=== PATIENT | female | born 1940 | race Two or more races ===

== ENCOUNTER 2024-05-04 08:49 | Outpatient (AMB) | payer MEDICARE, SELFPAY ==
--- NOTE | 2024-05-04 08:51 | MHC.PC.OV ---
Vital Signs 05/04/24 09:25 Height 4 ft 8 in Weight 81 lb 4 oz BMI 18.2 BP 140/80 H Blood Pressure Location Lt brachial Position Sitting Pulse 108 H Pulse Source Pulse Oximeter Pulse Oximetry (%) 95 Oxygen Delivery Method Room Air Intake Visit Reasons: new patient, establish care. Intake Note: patient is here for new patient, establish care. Professional Poker Player Required: No Accompanied by: Son Allergies penicillin G Allergy (Mild, Verified 05/04/24 09:47) Unknown sulfamethoxazole [From Bactrim] Allergy (Mild, Verified 05/04/24 09:47) Unknown trimethoprim [From Bactrim] Allergy (Mild, Verified 05/04/24 09:47) Unknown Medication List - Last Reconciled 05/04/24 by Elli Dasilva MD calcium carbonate 200 mg PO TID multivitamin 1 tab PO DAILY Tobacco use date assessed: 05/04/24 Fall risk assessment: 2 + Falls in past year Last assessed Fall Risk: 05/04/24 Dental Screening Dental Screen Date: 05/04/24 Did you have a dental visit in the last 12 months?: No Did you have a dental problem in the last 6 months where you did not have access to dental care?: No Was dental information given to patient?: Patient declined HPI new patient, establish care. HPI Details 84-year-old lady here today to establish care with a new PCP, she is accompanied today by her son. She has history of cholelithiasis status post cholecystectomy in the past, and as per send had uterine fibroids status post partial hysterectomy. Reviewed some labs and ancillary procedures done at [facility] 11/2023. Patient apparently was seen there for some neuro deficit noted? Stroke. Her CBC, basic metabolic profile, C-reactive protein, thiamine be level vitamin B6, and CBC all came back within normal limits she had a lumbar tap done which came back with unremarkable findings x-ray of abdomen showed presence of cholecystectomy clips, nonspecific nonobstructive bowel gas pattern no pelvic or hip fracture, chest x-ray done showed no evidence of acute pulmonary disease, MRI brain with and without contrast did not show any acute pathology or abnormal enhancement in the brain parenchyma there is diffuse enhancement of the dura along the convexity so bilateral cerebral hemispheres and falx, which is a nonspecific finding. CT angiogram of head and neck did not show any proximal occlusion or high-grade stenosis in major arteries of the head and neck, no evidence of lymphadenopathy or mass, thyroid was unremarkable mild degenerative changes of the cervical spine noted without any acute osseous abnormality in also shows degenerative changes seen in the temporomandibular joints. CT of cervical spine without contrast and CT of head and brain without contrast showed no acute abnormality of the head or cervical5. She had an ultrasound Doppler both lower extremities which did not show any evidence of deep vein thrombosis. At present patient is here without any complaints other than being hard of hearing. FORMERLY [facility] Medical History (Updated 05/07/24 @ 16:24 by Elli Dasilva MD) Decreased hearing of both ears Underweight Gait instability Surgical History (Updated 05/07/24 @ 16:06 by Elli Dasilva MD) History of cholecystectomy History of partial hysterectomy Family History (Updated 05/04/24 @ 09:30 by Tramaine Torres CMA) Mother Depression Father Acute alcohol abuse Social History (Updated 05/04/24 @ 09:30 by Tramaine Torres CMA) Housing: House Alcohol intake: never Patient Tobacco Use Status: Never used Tobacco e-Cigarette/Vaping Use: Never Used service: No Current occupational status: retired Current occupational exposures/hazards: No Cognitive needs: No Hearing needs: No Vision needs: Yes Questionnaire PHQ-9 Over the last 2 weeks, how often have you been bothered by any of the following problems? 1. Little interest or pleasure in doing things: not at all 2. Feeling down, depressed, or hopeless: not at all 3. Trouble falling or staying asleep, or sleeping too much: not at all 4. Feeling tired or having little energy: not at all 5. Poor appetite or overeating: not at all 6. Feeling bad about yourself - or that you are a failure or have let yourself or your family down: not at all 7. Trouble concentrating on things, such as reading the newspaper or watching television: not at all 8. Moving or speaking so slowly that other people could have noticed. Or the opposite - being so fidgety or restless that you have been moving around a lot more than usual: not at all 9. Thoughts that you would be better off or of hurting yourself in some way: not at all Total score: 0 Depression Screening Interpretation: Negative Depression Screening Done: Yes 11580 - PHQ-9 Billing: Yes Source: Developed by Drs. Kenny Souza, Purvi Felton, Sincere Arreola and colleagues, with an educational halina from [employer]. Thrive Questionnaire Date Thrive assessed: 05/04/24 I am a: Parent/Caregiver What is your living situation today?: I have a steady place to live Within the past 12 months, did the food you bought not last and you didn't have the money to get more?: Never true Within the past 12 months, did you worry whether your food would run out before you got money to buy more?: Never true Do you have trouble paying for medicines?: No Do you have trouble getting transportation to medical appointments?: No Do you have trouble paying your heating and electricity bill?: No Do you have trouble taking care of your child, family member or friend?: No Do you have trouble with day-to-day activities such as bathing, preparing meals, shopping, managing finances, etc.?: Yes Are you currently unemployed and looking for a job?: No Are you interested in more education?: No Please select the resources that you would like help with: Care for elder or disabled Currently or been in a relationship where the following occur: No concerns reported THRIVE Score: 0 AUDIT C Alcohol Use Questionnaire (AUDIT-C) 1. How often do you have a drink containing alcohol?: Never 3. How often do you have six or more drinks on one occasion?: Never Total Score: 0 Score Reviewed/Action Taken: Yes NY-7 AMB Questionnaire NY-7 Date NY - 7 assessed: 05/04/24 Feeling nervous, anxious, or on edge: 0 = Not at all Not being able to stop or control worryin = Not at all Worrying too much about different things: 0 = Not at all Trouble relaxin = Not at all Being so restless that it is hard to sit still: 0 = Not at all Becoming easily annoyed or irritable: 0 = Not at all Feeling afraid as if something awful might happen: 0 = Not at all Total NY-7 score (0-4 normal; 5-9 mild; 10-14 moderate; 15-21 severe): 0 Source: Developed by Purvi Patiño, Sincere Arreola and colleagues, with an educational halina from [employer]. NY-7 Assessment Billing NY-7 Assessment Tool: [place]-7 Assessment 80002 Review of Systems Const Denies body aches, Denies fatigue, Denies fever(s), Denies headache(s) and Denies weakness Eyes Reports blurry vision ENT Denies dizziness, Denies headache(s), Denies nasal congestion, Denies nasal discharge and Denies sore throat Card Denies chest pain, Denies lightheadedness, Denies palpitations and Denies dyspnea Resp Denies cough, Denies dyspnea and Denies wheezing GI Denies abdominal pain, Denies change in bowel habits and Denies heartburn Denies urinary frequency and Denies dysuria Musc Reports arthralgias (Occasional), Denies joint swelling and Reports stiffness Skin/Breast Denies breast pain, Denies breast mass, Denies lesions and Denies rash Neuro Denies dizziness, Denies headache(s) and Denies weakness Psych Reports no additional complaints Endo Denies fatigue, Denies polydipsia, Denies polyuria and Denies palpitations Rafael/Lymph Denies easy bruising Aller/Immun Denies seasonal rhinorrhea and Denies wheezing Physical exam (Primary Care) Vital Signs: Last Vital Signs Pulse 108 H 05/04/24 09:25 BP 140/80 H 05/04/24 09:25 Pulse Ox 95 05/04/24 09:25 Oxygen Delivery Method Room Air 05/04/24 09:25 BMI result Body Mass Index 18.2 Tobacco/Smoking Status: Tobacco use Status Tobacco use date assessed 05/04/24 05/04/24 09:08 Patient Tobacco Use Status Never used Tobacco 05/04/24 09:30 e-Cigarette/Vaping Use Never Used 05/04/24 09:30 PHQ-9: PHQ-9 Score PHQ-9: Total score 0 05/07/24 16:07 Depression Screening Interpretation: Negative Thrive Assessment: Date of Thrive Assessment Date Thrive assessed 05/04/24 05/04/24 09:08 Currently or been in a relationship where the following occur: No concerns reported Advance Care Planning discussion: Completed/Scanned Date of discussion: 05/04/24 Who was present: Patient and son Forms completed: Health Care Proxy and MOLST Time spent: 16-45 minutes Actual minutes spent: 16 Const Other: Hard of hearing General: comfortable, no acute distress and alert Orientation/consciousness: patient oriented x3 HENMT Ears: external ears normal, TM's normal bilaterally, Abnormal EAC present excessive cerumen on the left and hearing grossly impaired General nose exam: Normal external nose present and No nasal discharge present Mouth: Normal oral and palatal mucosa present, oropharynx normal and moist mucous membranes Eyes General: appearance normal, both eyes and all related structures Conjunctivae: conjunctivae normal Sclerae: sclerae normal Pupils: Equal, round and reactive pupils present EOM: EOMs intact bilaterally Neck Neck: Yes full ROM, Yes no lymphadenopathy and Yes supple Resp Effort & Inspection: normal respiratory effort and able to speak in complete sentences Auscultation: clear to auscultation bilaterally Cardio Rate: regular rate Rhythm: regular rhythm Heart sounds: S1 normal heart sound present and S2 normal heart sound present GI Inspection: Yes scar (RUQ-cholecystectomy scar) Palpation (GI): Soft to palpation, nontender and no masses Auscultation: normal bowel sounds Back/Spine/Pelvis Other: kyphosis Back: No back tenderness Skin General skin exam: no rashes or lesions noted Neuro General: patient oriented x3, tone normal, moves all extremities and no focal motor deficits Cranial nerves: Yes CN's II-XII intact bilaterally and Yes Equal, round and reactive pupils present Cognition (Neuro): normal cognition Extrem General: Yes full ROM, Yes no joint enlargement, Yes no clubbing, cyanosis or edema and Yes no calf tenderness Psych Appearance: grossly normal and well kempt Mental Status: mental status grossly normal Speech and movement: Normal speech and movement present Affect: normal affect Attitude: cooperative Thought process: Normal thought process present Thought content: Normal thought content present Assessment and Plan Assessment & Plan (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 Encouraged to eat small frequent meals, declines to get hearing evaluation done, return to the clinic for removal of cerumen Orders: Orders Glucose Random 05/04/24 E8.40 - Asymptomatic postprocedural ovarian failure, R03.0 - Elevated blood-pressure reading, without diagnosis of hypertension, R26.81 - Unsteadiness on feet, R63.6 - Underweight, Z13.220 - Encounter for screening for lipoid disorders Comprehensive Met. Panel 05/04/24 E8.40 - Asymptomatic postprocedural ovarian failure, R03.0 - Elevated blood-pressure reading, without diagnosis of hypertension, R26.81 - Unsteadiness on feet, R63.6 - Underweight, Z13.220 - Encounter for screening for lipoid disorders Lipid Panel 05/04/24 E8.40 - Asymptomatic postprocedural ovarian failure, R03.0 - Elevated blood-pressure reading, without diagnosis of hypertension, R26.81 - Unsteadiness on feet, R63.6 - Underweight, Z13.220 - Encounter for screening for lipoid disorders Complete Blood Count Auto Diff 05/04/24 E8.40 - Asymptomatic postprocedural ovarian failure, R03.0 - Elevated blood-pressure reading, without diagnosis of hypertension, R26.81 - Unsteadiness on feet, R63.6 - Underweight, Z13.220 - Encounter for screening for lipoid disorders TSH reflex Free T4 05/04/24 E8.40 - Asymptomatic postprocedural ovarian failure, R03.0 - Elevated blood-pressure reading, without diagnosis of hypertension, R26.81 - Unsteadiness on feet, R63.6 - Underweight, Z13.220 - Encounter for screening for lipoid disorders Vitamin D 25-OH Total 05/04/24 E8.40 - Asymptomatic postprocedural ovarian failure, R03.0 - Elevated blood-pressure reading, without diagnosis of hypertension, R26.81 - Unsteadiness on feet, R63.6 - Underweight, Z13.220 - Encounter for screening for lipoid disorders Vitamin B12 and Folate 05/04/24 E8.40 - Asymptomatic postprocedural ovarian failure, R03.0 - Elevated blood-pressure reading, without diagnosis of hypertension, R26.81 - Unsteadiness on feet, R63.6 - Underweight, Z13.220 - Encounter for screening for lipoid disorders Coding Level of Care Code New Pt Level 4 (34708) Diagnoses Postsurgical menopause E89.40 Gait instability R26.81 Underweight R63.6 Decreased hearing of both ears H91.93 Excessive cerumen in left ear canal H61.22 Additional Codes [place]-7 Assessment Billing - [place]-7 Assessment Tool: [place]-7 Assessment 46698 ([id number]) Vital Signs *Quality* - Advance Care Planning discussion: Completed/Scanned ([id number]) Vital Signs *Quality* - Time spent: 16-45 minutes ([id number])
[2024-05-04 09:25] VITALS: BP 140/80; PULSE 108; O2SAT 95; BMI 18.2
== END 2024-05-04 10:55 | disposition home or self-care (01) ==
PROVIDERS: PCP Internal Medicine; Visit Provider Internal Medicine
DX: R26.81 Unsteadiness on feet (principal); E89.40 Asymptomatic postprocedural ovarian failure; R63.6 Underweight; H91.93 Unspecified hearing loss, bilateral; H61.22 Impacted cerumen, left ear; Z00.00 Encounter for general adult medical examination without abnormal findings
CPT/HCPCS: 1123F; 99204; 99497

== ENCOUNTER 2024-05-10 10:51 | Outpatient (AMB) | payer MEDICARE, SELFPAY ==
--- NOTE | 2024-05-10 10:53 | AM.OFFWIN_ITS ---
Intake Vital Signs 05/10/24 10:54 Height 4 ft 8 in Weight 81 lb BMI 18.2 BP 110/66 Blood Pressure Location Lt brachial Position Sitting Pulse 98 Pulse Source Pulse Oximeter Temp 97.9 F Temp Source Oral Pulse Oximetry (%) 98 Oxygen Delivery Method Room Air Intake Visit Reasons: Ear Lavage Intake Note: pt c/o ears blocked Patient Tobacco Use Status: Never used Tobacco Allergies penicillin G Allergy (Mild, Verified 05/10/24 10:54) Unknown sulfamethoxazole [From Bactrim] Allergy (Mild, Verified 05/10/24 10:54) Unknown trimethoprim [From Bactrim] Allergy (Mild, Verified 05/10/24 10:54) Unknown Do you need a note to return to daycare/school/sports/work: No HPI HPI Comments History of Present Illness Details This is an 84-year-old female presenting for removal of ear wax. Patient believes that she has more ear wax in her right ear than her left ear but denies having any otalgia, fevers, chills or sore throat. Patient has not used any avat-uyz-pvlqnsa products for ear wax removal prior to arrival in the urgent care. FOR[facility]LY [facility] Medical History Decreased hearing of both ears Underweight Gait instability Surgical History History of cholecystectomy History of partial hysterectomy Family History Mother Depression Father Acute alcohol abuse Social History Housing: House Alcohol intake: never Patient Tobacco Use Status: Never used Tobacco e-Cigarette/Vaping Use: Never Used service: No Current occupational status: retired Current occupational exposures/hazards: No Cognitive needs: No Hearing needs: No Vision needs: Yes Review of Systems Const Details: decreased hearing bilaterally, denies otalgia All systems reviewed & are unremarkable except as noted in HPI and below Denies chills and Denies fever(s) Eyes Reports no additional complaints ENT Reports no additional complaints Card Reports no additional complaints Resp Reports no additional complaints GI Reports no additional complaints Reports no additional complaints Skin/Breast Reports system reviewed and no additional complaints, except as documented Psych Reports no additional complaints Endo Reports no additional complaints Physical Exam Vital Signs: Last Vital Signs Temp 97.9 F 05/10/24 10:54 Pulse 98 05/10/24 10:54 BP 110/66 05/10/24 10:54 Pulse Ox 98 05/10/24 10:54 Oxygen Delivery Method Room Air 05/10/24 10:54 BMI result Body Mass Index 18.2 Const General: cooperative, healthy appearing, comfortable, no acute distress, well developed, alert and awake Nutritional Appearance: average body habitus Orientation/consciousness: patient oriented x3 Limitations: no limitations HEENT Head: Yes normal to inspection Ears: hearing grossly abnormal bilaterally (subjective decreased hearing), external ears normal, EAC's not normal (cerumen impaction R>L) and no periauricular adenopathy General nose exam: Normal external nose present Neuro General: patient oriented x3 Psych Appearance: grossly normal Mental Status: mental status grossly normal Insight: Good insight present (Psych) Judgement: Good judgement present (Psych) Office Procedures Cerumen Removal From which ear canal was the cerumen removed: bilateral Removal: irrigation Notes: patient tolerated procedure well and ear canal clear (bilaterally) [id number] Irrigation/Lavage Assessment & Plan Assessment & Plan (1) Cerumen impaction: Comment: Cerumen cleared bilaterally by irrigation Code(s): H61.20 - Impacted cerumen, unspecified ear Qualifiers: Laterality: bilateral Qualified Code(s): H61.23 - Impacted cerumen, bilateral Plan: Follow-up only as needed. Coding Level of Care Code Est Pt Level 3 (54211) Diagnoses Bilateral impacted cerumen H61.23 Laterality: bilateral CPT Codes Office Procedure - CPT: 79357-Usy Irrigation/Lavage ([id number]) Time Spent (min) 20
[2024-05-10 10:54] VITALS: BP 110/66; PULSE 98; TEMP 36.6; O2SAT 98; BMI 18.2
== END 2024-05-10 12:08 | disposition home or self-care (01) ==
PROVIDERS: PCP Internal Medicine; Visit Provider Physician Assistant
DX: H61.23 Impacted cerumen, bilateral (principal)
CPT/HCPCS: 69209; 99213

== ENCOUNTER → 2025-03-01 23:59 | Outpatient (BNV) | payer MEDICARE, SELFPAY | PROVIDERS: PCP Internal Medicine; Visit Provider Internal Medicine | DX: E43 Unspecified severe protein-calorie malnutrition (principal); G40.909 Epilepsy, unspecified, not intractable, without status epilepticus; F02.80 Dementia in other diseases classified elsewhere, unspecified severity, without behavioral disturbance, psychotic disturbance, mood disturbance, and anxiety | CPT/HCPCS: G0180 ==

== ENCOUNTER 2025-03-09 09:52 | Outpatient (AMB) | payer MEDICARE, SELFPAY ==
--- NOTE | 2025-03-09 09:56 | A.OFFPC_ITS ---
Vital Signs 03/09/25 10:07 Height 4 ft 11 in Weight 82 lb BMI 16.6 BP 118/64 Blood Pressure Location Lt brachial Position Sitting Respiration 18 Pulse 103 H Pulse Source Pulse Oximeter Temp 97.9 F Temp Source Oral Pulse Oximetry (%) 95 Intake Visit Reasons: d/c rehap from a fall Intake Note: Pt is here today, she had a fall 3 weeks ago. Allergies penicillin G Allergy (Mild, Verified 03/09/25 10:25) Unknown sulfamethoxazole [From Bactrim] Allergy (Mild, Verified 03/09/25 10:25) Unknown trimethoprim [From Bactrim] Allergy (Mild, Verified 03/09/25 10:25) Unknown Medication List - Last Reconciled 03/09/25 by Elli Dasilva MD calcium carbonate 200 mg PO TID multivitamin 1 tab PO DAILY Tobacco use date assessed: 03/09/25 Fall risk assessment: 1 Fall in past year Last assessed Fall Risk: 03/09/25 Dental Screening Dental Screen Date: 03/09/25 Did you have a dental visit in the last 12 months?: No Did you have a dental problem in the last 6 months where you did not have access to dental care?: No Was dental information given to patient?: No HPI d/c rehap from a fall HPI Details - The patient is an 85-year-old female p resenting with a recent fall, suspected seizures, and nutritional concerns. The fall, occurring in the bathroom approximately 10 days ago, resulted in hospitalization. Despite prior EEGs showing no seizure activity, she is now on Levetiracetam to address unspecified convulsions. Weakness and anemia are noted, with a recent hemoglobin level of 10 g/dL. The patient's dietary intake is insufficient, prompting additional consumption of nutrition shakes. Constipation is an ongoing issue, with interventions like milk of magnesia discussed. Wax accumulation in the ears led to previous removal, and there is a renewed suspicion of earwax causing symptoms. The patient is low on vitamin D, taking supplements to bolster levels. [facility] Medical History (Updated 03/09/25 @ 10:44 by Elli Dasilva MD) Seizure disorder Constipation History of vitamin D deficiency Decreased hearing of both ears Underweight Gait instability Surgical History History of cholecystectomy History of partial hysterectomy Family History Mother Depression Father Acute alcohol abuse Social History Housing: House Alcohol intake: never Patient Tobacco Use Status: Never used Tobacco e-Cigarette/Vaping Use: Never Used service: No Current occupational status: retired Current occupational exposures/hazards: No Cognitive needs: No Hearing needs: No Vision needs: Yes Questionnaire PHQ-9 Over the last 2 weeks, how often have you been bothered by any of the following problems? 1. Little interest or pleasure in doing things: several days 2. Feeling down, depressed, or hopeless: not at all 3. Trouble falling or staying asleep, or sleeping too much: not at all 4. Feeling tired or having little energy: several days 5. Poor appetite or overeating: more than half the days 6. Feeling bad about yourself - or that you are a failure or have let yourself or your family down: not at all 7. Trouble concentrating on things, such as reading the newspaper or watching television: not at all 8. Moving or speaking so slowly that other people could have noticed. Or the opposite - being so fidgety or restless that you have been moving around a lot more than usual: several days 9. Thoughts that you would be better off or of hurting yourself in some way: not at all Total score: 5 Depression Screening Interpretation: Negative Depression Screening Done: Yes 31154 - PHQ-9 Billing: Yes Source: Developed by Drs. Kenny Souza, Purvi Felton, Sincere Arreola and colleagues, with an educational halina from [employer]. Thrive Questionnaire Date Thrive assessed: 05/04/24 I am a: Parent/Caregiver What is your living situation today?: I have a steady place to live Within the past 12 months, did the food you bought not last and you didn't have the money to get more?: Never true Within the past 12 months, did you worry whether your food would run out before you got money to buy more?: Never true Do you have trouble paying for medicines?: No Do you have trouble getting transportation to medical appointments?: No Do you have trouble paying your heating and electricity bill?: No Do you have trouble taking care of your child, family member or friend?: No Do you have trouble with day-to-day activities such as bathing, preparing meals, shopping, managing finances, etc.?: Yes Are you currently unemployed and looking for a job?: No Are you interested in more education?: No Please select the resources that you would like help with: None Currently or been in a relationship where the following occur: No concerns reported THRIVE Score: 0 AUDIT C Alcohol Use Questionnaire (AUDIT-C) 1. How often do you have a drink containing alcohol?: Never Total Score: 0 NY-7 AMB Questionnaire NY-7 Date NY - 7 assessed: 05/04/24 Feeling nervous, anxious, or on edge: 0 = Not at all Not being able to stop or control worryin = Not at all Worrying too much about different things: 0 = Not at all Trouble relaxin = Several days Being so restless that it is hard to sit still: 0 = Not at all Becoming easily annoyed or irritable: 0 = Not at all Feeling afraid as if something awful might happen: 0 = Not at all Total NY-7 score (0-4 normal; 5-9 mild; 10-14 moderate; 15-21 severe): 1 Source: Developed by Drs. Kenny Souza, Purvi Felton, Sincere Arreola and colleagues, with an educational halina from [employer]. NY-7 Assessment Billing NY-7 Assessment Tool: NY-7 Assessment 31158 Review of Systems Const Details: - General: Reports weakness, decreased appetite. - Neurological: Denies seizure symptoms since last evaluation. - Gastrointestinal: Reports difficulties with bowel movements, use of nutritional supplements. - Musculoskeletal: Reports recent fall and associated weakness. - Ear, Nose, Throat: Reports suspicion of earwax accumulation. Physical exam (Primary Care) Vital Signs: Last Vital Signs Temp 97.9 F 03/09/25 10:07 Pulse 103 H 03/09/25 10:07 Resp 18 03/09/25 10:07 BP 118/64 03/09/25 10:07 Pulse Ox 95 03/09/25 10:07 BMI result Body Mass Index 16.6 Tobacco/Smoking Status: Tobacco use Status Tobacco use date assessed 03/09/25 03/09/25 10:06 Patient Tobacco Use Status Never used Tobacco 03/09/25 09:59 e-Cigarette/Vaping Use Never Used 03/09/25 09:59 PHQ-9: PHQ-9 Score PHQ-9: Total score 5 03/09/25 10:47 Depression Screening Interpretation: Negative Thrive Assessment: Date of Thrive Assessment Date Thrive assessed 05/04/24 03/09/25 09:59 Currently or been in a relationship where the following occur: No concerns reported Const Other: - Cardiovascular- Heart sounds normal, stable. - Respiratory- Lungs clear to auscultation. - Ears- Presence of earwax but no signs of infection. - Musculoskeletal- Reports lateral left-side tenderness; no bruising visualized. - Gastrointestinal- No overt abdominal tenderness reported. - General- Weakness observed, reduced intake. Coding Level of Care Code Est Pt Level 4 (30599) Complex EM visit Add On G2211 Diagnoses Upper respiratory infection with cough and congestion J06.9 Constipation K59.00 Underweight R63.6 Additional Codes PHQ-9 - 42054 - PHQ-9 Billing: Yes ([id number]) NY-7 Assessment Billing - NY-7 Assessment Tool: NY-7 Assessment 42870 ([id number]) Assessment & Plan Assessment & Plan (1) Upper respiratory infection with cough and congestion: Code(s): J06.9 - Acute upper respiratory infection, unspecified Plan: Prescription sent for loratadine 10 mg take once a day. Return to clinic if no improvement of symptoms after 5 days (2) Constipation: Code(s): K59.00 - Constipation, unspecified Category: Medical Plan: Stay well-hydrated, prescription sent for docusate sodium 100 mg per capsule taken once a day to help soften stool (3) Underweight: Code(s): R63.6 - Underweight Category: Medical Plan: Supplement all meals with protein shakes, advised to try giving her bone broth soup with Cabbage, potatoes and carrots to supplements her diet Medications: New cholecalciferol (vitamin D3) 50 mcg PO DAILY 90 caps 0RF docusate sodium 100 mg PO DAILY 90 caps 1RF loratadine 10 mg PO DAILY PRN 30 tabs 1RF allergy symptoms NS G40.909 - Epilepsy, unspecified, not intractable, without status epilepticus, J06.9 - Acute upper respiratory infection, unspecified, K59.00 - Constipation, unspecified, Z86.39 - Personal history of other endocrine, nutritional and metabolic disease
[2025-03-09 10:07] VITALS: BP 118/64; PULSE 103; RESP 18; TEMP 36.6; O2SAT 95; BMI 16.6
--- OUTSIDE RECORDS SUMMARY | 2025-03-09 10:20 | XMS_ITS | Clinical Summary ---
Author Organization [address] [facility] Address [address] [place] [address] Phone Care Team Providers Care Senior Power Plant Operator Name Role Phone Madhav Valdovinos MD Primary Care Provider Encounters Date Type Department Care Team Description 02/24/2025 Lab Requisition [facility] Lab [address] [place] [address] Chrissy Schaffer PA Adult failure to thrive; Hypocalcemia; Systemic inflammatory response syndrome (sirs) of non-infectious origin with acute organ dysfunction ([facility] V24, CMS/[facility] V28) 02/16/2025 Lab Requisition [facility] Lab [address] [place] [phone] Madhav Valdovinos MD Other nonspecific abnormal finding of lung field; Systemic inflammatory response syndrome (sirs) of non-infectious origin with acute organ dysfunction ([facility] V24, CMS/[facility] V28); Unspecified convulsions ([facility] V24, CMS/[facility] V28) from Last 3 Months Social History Tobacco Use Types Packs/Day Years Used Date Smoking Tobacco: Never Assessed Comments Unknown Sex and Gender Information Value Date Recorded Sex Assigned at Not on file Legal Sex Female 10:48 AM EST Gender Identity Not on file Sexual Orientation Not on file Plan of Treatment Health Maintenance Due Date Last Done Comments Zoster Vaccines (1 of 2) 01/13/1990 RSV Immunization Adult Patients (1 - 1-dose 75+ series) 01/13/2015 DTaP,Tdap,and Td Vaccines (3 - Td or Tdap) 03/14/2024 03/14/2014, 01/19/2011 COVID-19 Vaccine ( - season) 2024 Depression Screening 02/16/2025 Falls Risk Assessment 02/16/2025 Medicare Annual Wellness Visit 02/16/2025 Osteoporosis Screening (Bone Density Screening) 02/16/2025 Social Influencers of Health Screening 02/16/2025 Influenza Vaccine (Season Ended) 2025 08/02/2016, 07/28/2015, 07/29/2014, Additional history exists Pneumococcal Vaccine: 50+ Years Completed 11/08/2015, 11/22/2007 HIB Vaccines Aged Out No longer eligi ble based on patient's age to complete this topic HPV Vaccines Aged Out No longer eligi ble based on patient's age to complete this topic Hepatitis A Vaccines Aged Out No long er eligible based on patient's age to complete this topic Hepatitis B Vaccines Aged Out No long er eligible based on patient's age to complete this topic IPV Vaccines Aged Out No longer eligi ble based on patient's age to complete this topic MMR Vaccines Aged Out No longer eligi ble based on patient's age to complete this topic Meningococcal ACWY Vaccine Aged Out N o longer eligible based on patient's age to complete this topic Meningococcal B Vaccine Aged Out No l onger eligible based on patient's age to complete this topic RSV Immunization Patients Under 20 months Aged Out No longer eligible based on patient's age to complete this topic Varicella Vaccines Aged Out No longer eligible based on patient's age to complete this topic Procedures Procedure Name Priority Date/Time Associated Diagnosis Comments COMPLETE BLOOD COUNT Routine 02/24/2025 6:12 AM EDT Adult failure to thrive Hypocalcemia Systemic inflammatory response syndrome (sirs) of non-infectious origin with acute organ dysfunction (CMS/HCC V24, CMS/HCC V28) BASIC METABOLIC PANEL Routine 02/24/2025 6:12 AM EDT Adult failure to thrive Hypocalcemia Systemic inflammatory response syndrome (sirs) of non-infectious origin with acute organ dysfunction (CMS/HCC V24, CMS/HCC V28) LEVETIRACETAM LEVEL Routine 02/16/2025 6 :04 AM EDT Other nonspecific abnormal finding of lung field Systemic inflammatory response syndrome (sirs) of non-infectious origin with acute organ dysfunction (CMS/HCC V24, CMS/HCC V28) Unspecified convulsions (CMS/HCC V24, CMS/HCC V28) COMPREHENSIVE METABOLIC PANEL Routine 02/16/2025 6:04 AM EDT Other nonspecific abnormal finding of lung field Systemic inflammatory response syndrome (sirs) of non-infectious origin with acute organ dysfunction (CMS/HCC V24, CMS/HCC V28) Unspecified convulsions (CMS/HCC V24, CMS/HCC V28) COMPLETE BLOOD COUNT Routine 02/16/2025 6:04 AM EDT Other nonspecific abnormal finding of lung field Systemic inflammatory response syndrome (sirs) of non-infectious origin with acute organ dysfunction (CMS/HCC V24, CMS/HCC V28) Unspecified convulsions (CMS/HCC V24, CMS/HCC V28) from Last 3 Months Results * (ABNORMAL) Complete blood count (02/24/2025 6:12 AM EDT) Only the most recent of2 resultswithin the time period is included. WBC 6.5 4.8 - 10.8 K/mcL LAB HEMETOLOGY METHOD 02/24/2025 12:41 PM [facility] RBC 3.30(L) 3.80 - 4.80 M/mcL LAB HEMETOLOGY METHOD 02/24/2025 12:41 PM [facility] Hemoglobin 10.3(L) 11.5 - 16.0 g/dL LAB HEMETOLOGY METHOD 02/24/2025 12:41 PM [facility] Hematocrit 32.4(L) 35.0 - 47.0 % LAB HEMETOLOGY METHOD 02/24/2025 12:41 PM [facility] MCV 97.6 79.0 - 98.0 FL LAB HEMETOLOGY METHOD 02/24/2025 12:41 PM [facility] MCH 31.0 27.0 - 32.0 pcg LAB HEMETOLOGY METHOD 02/24/2025 12:41 PM [facility] MCHC 31.8(L) 32.0 - 37.0 g/dL LAB HEMETOLOGY METHOD 02/24/2025 12:41 PM EDT [facility] RDW 14.1 11.0 - 15.0 % LAB HEMETOLOGY METHOD 02/24/2025 12:41 PM EDT [facility] Platelets 202 130 - 400 K/mcL LAB HEMETOLOGY METHOD 02/24/2025 12:41 PM EDT [facility] MPV 10.7 7.0 - 11.0 FL LAB HEMETOLOGY METHOD 02/24/2025 12:41 PM EDT [facility] NRBC 0.0 <1.0 % LAB HEMETOLOGY METHOD 02/24/2025 12:41 PM EDT [facility] NRBC Absolute 0.00 <0.10 K/mcL [facility] 02/24/2025 12:41 PM EDT [facility] Blood Venous blood specimen / Unknown 02/24/2025 6:12 AM EDT 02/24/2025 11:54 AM EDT Chrissy Schaffer PA LAB BLOOD ORDERAB LES Final Result [facility] [address] [place] [address], * (ABNORMAL) Basic metabolic panel (02/24/2025 6:12 AM EDT) Sodium 138 133 - 145 mmol/L LAB CHEMISTRY METHOD 02/24/2025 12:25 PM EDT [facility] Potassium 4.1 3.5 - 5.5 mmol/L LAB CHEMISTRY METHOD 02/24/2025 12:25 PM EDT [facility] Chloride 105 96 - 110 mmol/L LAB CHEMISTRY METHOD 02/24/2025 12:25 PM EDT [facility] CO2 26 21 - 32 mmol/L LAB CHEMISTRY METHOD 02/24/2025 12:25 PM EDT [facility] Anion Gap 7 3 - 11 LAB CHEMISTRY METHOD 02/24/2025 12:25 PM EDT [facility] Glucose 75 70 - 100 mg/dL LAB CHEMISTRY METHOD 02/24/2025 12:25 PM EDT [facility] BUN 18 5 - 25 mg/dL LAB CHEMISTRY METHOD 02/24/2025 12:25 PM EDT [facility] Creatinine 0.40(L) 0.50 - 1.10 mg/dL LAB CHEMISTRY METHOD 02/24/2025 12:25 PM EDT [facility] eGFR 97 >=60 mL/min/1. 73m2 LAB CHEMISTRY METHOD 02/24/2025 12:25 PM EDT [facility] Comment:Calculation based on the Chronic Kidney Disease Epidemiology Collaboration (CKD-EPI) equation refit without adjustment for race. BUN/Creatinine Ratio 45.0 LAB CHEMISTRY METHOD 02/24/2025 12:25 PM EDT [facility] Calcium 8.6 8.5 - 10.5 mg/dL LAB CHEMISTRY METHOD 02/24/2025 12:25 PM T [facility] Blood Venous blood specimen / Unknown 02/24/2025 6:12 AM EDT 02/24/2025 11:54 AM EDT Chrissy SHETTY LAB BLOOD ORDERAB LES Final Result [facility] [address] [place] [address], * Levetiracetam level (02/16/2025 6:04 AM EDT) Levetiracetam 4.6 3.0 - 60.0 ug/mL 02/19/2025 9:19 AM EDT [facility] Comment: Steady state trough serum or plasma levels following doses of 1000 to 3000 mg/Day: ??3 to 37 ug/mL. The same dosage regimen will typically result in peak levels of 10 to 60 ug/mL, at approximately 1.5 hours post dose. If applicable, any drug confirmation testing reported here was developed and the performance characteristics determined by [facility]. This confirmation testing has not been cleared or approved by the FDA. The laboratory is regulated under CLIA as qualified to perform high-complexity testing. This test is used for patient testing purposes. It should not be regarded as investigational or for research. Test performed at [facility], [address] , [place], [place] ??[address] ? [phone] Candi Meng MD, PhD - Reworker Blood Venous blood specimen / Unknown Venipuncture / Unknown 02/16/2025 6:04 AM EDT 02/16/2025 10:11 AM EDT Madhav Valdovinos MD LAB BLOOD ORDERABLES Final R esult [facility] [address] [place] [address] * (ABNORMAL) Comprehensive metabolic panel (02/16/2025 6:04 AM EDT) Sodium 139 133 - 145 mmol/L LAB CHEMISTRY METHOD 02/16/2025 11:47 AM [facility] Potassium 4.1 3.5 - 5.5 mmol/L LAB CHEMISTRY METHOD 02/16/2025 11:47 AM [facility] Chloride 107 96 - 110 mmol/L LAB CHEMISTRY METHOD 02/16/2025 11:47 AM [facility] CO2 22 21 - 32 mmol/L LAB CHEMISTRY METHOD 02/16/2025 11:47 AM [facility] Anion Gap 10 3 - 11 LAB CHEMISTRY METHOD 02/16/2025 11:47 AM [facility] Glucose 81 70 - 100 mg/dL LAB CHEMISTRY METHOD 02/16/2025 11:47 AM [facility] BUN 15 5 - 25 mg/dL LAB CHEMISTRY METHOD 02/16/2025 11:47 AM [facility] Creatinine 0.40(L) 0.50 - 1.10 mg/dL LAB CHEMISTRY METHOD 02/16/2025 11:47 AM [facility] eGFR 97 >=60 mL/min/1. 73m2 LAB CHEMISTRY METHOD 02/16/2025 11:47 AM [facility] Comment:Calculation based on the Chronic Kidney Disease Epidemiology Collaboration (CKD-EPI) equation refit without adjustment for race. BUN/Creatinine Ratio 37.5 LAB CHEMISTRY METHOD 02/16/2025 11:47 AM [facility] Calcium 8.6 8.5 - 10.5 mg/dL LAB CHEMISTRY METHOD 02/16/2025 11:47 AM [facility] AST (SGOT) 27 10 - 42 unit/L LAB CHEMISTRY METHOD 02/16/2025 11:47 AM [facility] ALT (SGPT) 25 10 - 60 unit/L LAB CHEMISTRY METHOD 02/16/2025 11:47 AM [facility] Alkaline Phosphatase 66 42 - 121 unit/L LAB CHEMISTRY METHOD 02/16/2025 11:47 AM [facility] Total Protein 6.4 6.0 - 8.0 g/dL LAB CHEMISTRY METHOD 02/16/2025 11:47 AM [facility] Albumin 2.9(L) 3.2 - 5.0 g/dL LAB CHEMISTRY METHOD 02/16/2025 11:47 AM [facility] Total Bilirubin 0.8 0.0 - 1.4 mg/dL LAB CHEMISTRY METHOD 02/16/2025 11:47 AM [facility] Blood Venous blood specimen / Unknown Venipuncture / Unknown 02/16/2025 6:04 AM EDT 02/16/2025 10:11 AM EDT us Madhav Valdovinos MD LAB BLOOD ORDERABLES Final R esult [facility] [address] [place] [address], [place] [phone] from Last 3 Months Insurance [employer] MEDICARE MEDICAID - [place] Care Teams Senior Power Plant Operator Relationship Specialty Start Date End Date Madhav Valdovinos MD [address] [place] [address] PCP - General Family Medicine 02/16/25
== END 2025-03-09 11:01 | disposition home or self-care (01) ==
LOC: HO.HMCC 09:53
PROVIDERS: PCP Internal Medicine; Visit Provider Internal Medicine
DX: J06.9 Acute upper respiratory infection, unspecified (principal); K59.00 Constipation, unspecified; R63.6 Underweight

== ENCOUNTER → 2025-03-09 09:52 | Outpatient (BNVA) | payer MEDICARE, SELFPAY | PROVIDERS: PCP Internal Medicine; Visit Provider Internal Medicine | DX: J06.9 Acute upper respiratory infection, unspecified (principal); K59.00 Constipation, unspecified; R63.6 Underweight | CPT/HCPCS: 96127; 99212 ==

== ENCOUNTER 2025-06-25 12:35 | Outpatient (AMB) | payer MEDICARE, SELFPAY ==
--- OUTSIDE RECORDS SUMMARY | 2025-05-18 13:10 | XMS_ITS | Continuity of Care Document ---
Author Organization [facility] Address [address] [address] Phone Care Team Providers Care Certified Medical Coding Specialist Name Role Phone Abdi GARCIA/MHA/CMJose L, Satish Unavailable Unavaila ble Advance Directives Directive Yes / No Effective Date File Name No Information Encounters Encounter Description Practice Location Reason(s) For Visit Diagnoses Date Provider [facility], [address], [id number], tel:[phone] [address] No Information 2024 Abdi Covarrubias. [address] [place], [place], [id number], [place]. tel:[phone] Family History Family Member Type Diagnosis Age At Onset No Information Payers Payer name Insurance type Covered alliance party ID Authoriza tion(s) No Information Social History Type Description Quantity Date Captured Comments Sex Female Smoking Status No Information Chief Complaint And Reason For Visit No Information History Of Present Illness Encounter Date Complaint History Of Prese nt Illness No Information Instructions Date Instruction Additional Infor mation No Information Assessments Type Assessment Date No Information
[2025-06-25 13:19] VITALS: BP 122/80; PULSE 114; RESP 17; TEMP 36.6; O2SAT 97; BMI 16.1
--- NOTE | 2025-06-25 13:19 | A.OFFPC_ITS ---
Vital Signs 06/25/25 13:19 Height 4 ft 11 in Weight 79 lb 8 oz BMI 16.1 BP 122/80 Blood Pressure Location Lt brachial Position Sitting Respiration 17 Pulse 114 H Pulse Source Pulse Oximeter Temp 97.9 F Temp Source Oral Pulse Oximetry (%) 97 Oxygen Delivery Method Room Air Intake Visit Reasons: Annual PE - see comments Intake Note: Pt is here today for her PE Allergies penicillin G Allergy (Mild, Verified 06/25/25 13:56) Unknown sulfamethoxazole (From Bactrim) Allergy (Mild, Verified 06/25/25 13:56) Unknown trimethoprim (From Bactrim) Allergy (Mild, Verified 06/25/25 13:56) Unknown Medication List - Last Reconciled 06/25/25 by Elli Dasilva MD calcium carbonate 200 mg PO TID cholecalciferol (vitamin D3) 50 mcg PO DAILY docusate sodium 100 mg PO DAILY levetiracetam (Keppra) 500 mg PO BID loratadine 10 mg PO DAILY PRN NS multivitamin 1 tab PO DAILY Tobacco use date assessed: 06/25/25 Fall risk assessment: 1 Fall in past year Last assessed Fall Risk: 06/25/25 Dental Screening Dental Screen Date: 03/09/25 Did you have a dental visit in the last 12 months?: No Did you have a dental problem in the last 6 months where you did not have access to dental care?: No Was dental information given to patient?: Patient declined HPI Annual PE - see comments HPI Details 85-year-old lady with history of dementi a, seizure disorder currently on Keppra, under nutrition, and gait instability, here today for physical exam. She is accompanied today by her son who states that patient has poor appetite , has to be coaxed to eat. They have been giving her Ensure and other nutrition supplements, but only able to drink a little bit at a time. Has been unstable with gait, with frequent falls in the past. Received occupational and physical therapy in the past for help with balance and strength training. all history obtained from son [facility] Medical History Seizure disorder Constipation History of vitamin D deficiency Decreased hearing of both ears Underweight Gait instability Surgical History History of cholecystectomy History of partial hysterectomy Family History Mother Depression Father Acute alcohol abuse Social History Housing: House Alcohol intake: never Patient Tobacco Use Status: Never used Tobacco e-Cigarette/Vaping Use: Never Used service: No Current occupational status: retired Current occupational exposures/hazards: No Cognitive needs: No Hearing needs: No Vision needs: Yes Questionnaire PHQ-9 Over the last 2 weeks, how often have you been bothered by any of the following problems? Depression Screening Interpretation: Negative Depression Screening Done: Yes Source: Developed by Drs. Kenny Souza, Sincere Guerrero and colleagues, with an educational halina from [employer]. Thrive Questionnaire Date Thrive assessed: 03/09/25 I am a: Parent/Caregiver What is your living situation today?: I have a steady place to live Within the past 12 months, did the food you bought not last and you didn't have the money to get more?: Never true Within the past 12 months, did you worry whether your food would run out before you got money to buy more?: Never true Do you have trouble paying for medicines?: No Do you have trouble getting transportation to medical appointments?: No Do you have trouble paying your heating and electricity bill?: No Do you have trouble taking care of your child, family member or friend?: No Do you have trouble with day-to-day activities such as bathing, preparing meals, shopping, managing finances, etc.?: Yes Are you currently unemployed and looking for a job?: No Are you interested in more education?: No Please select the resources that you would like help with: None Currently or been in a relationship where the following occur: No concerns reported THRIVE Score: 0 AUDIT C Alcohol Use Questionnaire (AUDIT-C) 3. How often do you have six or more drinks on one occasion?: Never Total Score: 0 NY-7 AMB Questionnaire NY-7 Date NY - 7 assessed: 05/04/24 Source: Developed by Drs. Kenny Souza, Sincere Guerrero and colleagues, with an educational halina from [employer]. Review of Systems Const Reports no additional complaints ENT Details: decreased hearing Card Reports no additional complaints Resp Reports no additional complaints GI Denies abdominal pain, Denies melena, Denies hematochezia and Reports constipation (occasional) Musc Reports as per HPI Neuro Reports as per HPI and Denies convulsions (ever snce started back on Keppra by Dr Palm) Psych Reports no additional complaints Endo Reports as per HPI Rafael/Lymph Denies easy bleeding and Denies easy bruising Physical exam (Primary Care) Vital Signs: Last Vital Signs Temp 97.9 F 06/25/25 13:19 Pulse 114 H 06/25/25 13:19 Resp 17 06/25/25 13:19 BP 122/80 06/25/25 13:19 Pulse Ox 97 06/25/25 13:19 Oxygen Delivery Method Room Air 06/25/25 13:19 BMI result Body Mass Index 16.1 Tobacco/Smoking Status: Tobacco use Status Tobacco use date assessed 06/25/25 06/25/25 13:23 Patient Tobacco Use Status Never used Tobacco 06/25/25 13:23 e-Cigarette/Vaping Use Never Used 06/25/25 13:23 Depression Screening Interpretation: Negative Thrive Assessment: Date of Thrive Assessment Date Thrive assessed 03/09/25 06/25/25 13:23 Currently or been in a relationship where the following occur: No concerns reported Advance Care Planning discussion: On file, no changes Date of discussion: 07/01/25 Who was present: patient and son Forms completed: Health Care Proxy and MOLST Time spent: 1-15 minutes, on File Actual minutes spent: 1 Const Other: Hard of hearing General: comfortable and no acute distress Nutritional Appearance: underweight HENMT Head: Yes normocephalic and Yes atraumatic Ears: external ears normal, Abnormal EAC present excessive cerumen on the left and hearing grossly impaired General nose exam: Normal external nose present Face and sinus: Yes face symmetric Mouth: Normal oral and palatal mucosa present and moist mucous membranes Eyes General: appearance normal, both eyes and all related structures Conjunctivae: conjunctival abnormal (pale ) bilateral Neck Neck: Yes full ROM, Yes no lymphadenopathy and Yes supple Resp Effort & Inspection: normal respiratory effort Auscultation: clear to auscultation bilaterally Cardio Rate: tachycardic GI Inspection: Yes scar (RUQ-cholecystectomy scar) Palpation (GI): Soft to palpation, nontender and no masses Auscultation: normal bowel sounds Back/Spine/Pelvis Other: kyphosis Back: No back tenderness Skin General skin exam: no rashes or lesions noted Neuro General: tone normal and no focal motor deficits Cranial nerves: Yes CN's II-XII intact bilaterally Extrem General: Yes full ROM, Yes no joint enlargement, Yes no clubbing, cyanosis or edema and Yes no calf tenderness Psych Other: unable to determine Coding Level of Care Code Est Pt Prev Care >65y(54462) Diagnoses Annual visit for general adult medical examination with abnormal findings Z00.01 Gait instability R26.81 Underweight R63.6 Decreased hearing of both ears H91.93 History of vitamin D deficiency Z86.39 Seizure disorder G40.909 Additional Codes Vital Signs *Quality* - Advance Care Planning discussion: On file, no changes ([id number]) Vital Signs *Quality* - Time spent: 1-15 minutes, on File ([id number]) Assessment & Plan Assessment & Plan (1) Annual visit for general adult medical examination with abnormal findings: Code(s): Z00.01 - Encounter for general adult medical examination with abnormal findings Plan: The patient is up to date with pneumonia and tetanus vaccinations. It is r ecommended to administer the flu vaccine as she has not had any adverse reactions to vaccines in the past. labs ordered . Has Health Care proxy and MOLST already completed (2) Gait instability: Code(s): R26.81 - Unsteadiness on feet Category: Medical (3) Underweight: Code(s): R63.6 - Underweight Category: Medical (4) Decreased hearing of both ears: Code(s): H91.93 - Unspecified hearing loss, bilateral Category: Medical (5) History of vitamin D deficiency: Code(s): Z86.39 - Personal history of other endocrine, nutritional and metabolic disease Category: Medical (6) Seizure disorder: Comment: seen by Dr Palm, started again on Keppra Code(s): G40.909 - Epilepsy, unspecified, not intractable, without status epilepticus Category: Medical Plan 1. Weight loss The patient has lost three pounds since the last visit in February, despite eating two meals a day provided by [employer]. Continue to supplement her diet with nutrition shakes like Ensure or Boost, although she finds them sweet. Alternatives such as oatmeal with fruit and flaxseed are suggested to increase caloric intake. 2. Tachycardia The patient's heart rate was noted to be fast during the visit. Further monitoring and evaluation may be necessary to determine the underlying cause and appropriate management. 3. Low vitamin D The patient's vitamin D was previously low, and she is currently on vitamin D3 supplementation at 2000 units daily. Continued supplementation is advised to maintain adequate levels. 4. Arthritis The patient experiences back pain likely due to arthritis, for which she takes Tylenol as needed. Continued use of Tylenol for joint pain management is recommended. 5. Preventative care The patient is up to date with pneumonia and tetanus vaccinations. It is recommended to administer the flu vaccine as she has not had any adverse reactions to vaccines in the past. labs ordered Orders: Orders Complete Blood Count Auto Diff 06/25/25 G40.909 - Epilepsy, unspecified, not intractable, without status epilepticus, H91.93 - Unspecified hearing loss, bilateral, R26.81 - Unsteadiness on feet, R63.6 - Underweight, Z86.39 - Personal history of other endocrine, nutritional and metabolic disease Alanine Aminotransferase 06/25/25 G40.909 - Epilepsy, unspecified, not intractable, without status epilepticus, H91.93 - Unspecified hearing loss, bilateral, R26.81 - Unsteadiness on feet, R63.6 - Underweight, Z86.39 - Personal history of other endocrine, nutritional and metabolic disease Aspartate Amino Transferase 06/25/25 G40.909 - Epilepsy, unspecified, not intractable, without status epilepticus, H91.93 - Unspecified hearing loss, bilateral, R26.81 - Unsteadiness on feet, R63.6 - Underweight, Z86.39 - Personal history of other endocrine, nutritional and metabolic disease Basic Metabolic Panel 06/25/25 G40.909 - Epilepsy, unspecified, not intractable, without status epilepticus, H91.93 - Unspecified hearing loss, bilateral, R26.81 - Unsteadiness on feet, R63.6 - Underweight, Z86.39 - Personal history of other endocrine, nutritional and metabolic disease Vitamin D 25-OH Total 06/25/25 G40.909 - Epilepsy, unspecified, not intractable, without status epilepticus, H91.93 - Unspecified hearing loss, bilateral, R26.81 - Unsteadiness on feet, R63.6 - Underweight, Z86.39 - Personal history of other endocrine, nutritional and metabolic disease
--- OUTSIDE RECORDS SUMMARY | 2025-06-25 17:16 | XMS_ITS | Clinical Summary ---
Author Organization [address] Address [address] [place] [phone] Phone Care Team Providers Care Trading Floor Operator Name Role Phone Madhav Valdovinos MD Primary Care Provider [phone] Social History Tobacco Use Types Packs/Day Years [...] - Td or Tdap) 03/14/2024 03/14/2014, 01/19/2011 Depression Screening 10/11/2024 Falls Risk Assessment 02/16/2025 Medicare Annual Wellness Visit 02/16/2025 Osteoporosis Screening (Bone Density Screening) 02/16/2025 Social Influencers of Health Screening 02/16/2025 COVID-19 Vaccine ( season) 2025 Influenza Vaccine (#1) 2025 6, 07/28/2015, 07/29/2014, Additional history exists Pneumococcal Vaccine: [...] on patient's age to complete this topic Insurance [employer] MEDICARE MEDICAID - [place] Care Teams Trading Floor Operator Relationship Specialty Start Date End Date Madhav Valdovinos MD [address] [place] [address] PCP - General Family Medicine 02/16/25
--- OUTSIDE RECORDS SUMMARY | 2025-06-25 17:16 | XMS_ITS | Encounter Summary ---
Author Organization [facility] Address [address] [place] [address] Care Team Providers Care Printed Circuit Boards Beveler Name Role Phone Madhav Valdovinos MD Primary Care Provider [phone] Encounter Details Date Type Department Care Team (Late st Contact Info) Description 02/24/2025 Lab Requisition [facility] - Main Lab [address] [facility] [place] [address] Chrissy Schaffer PA [address] [facility] [address] [place] [address] Adult failure to thrive; Hypocalcemia; Systemic inflammatory response syndrome (sirs) of non-infectious origin with acute organ dysfunction (CMS/HCC V24, CMS/HCC V28) Social History Tobacco Use Types Packs/Day Years Used Date Smoking Tobacco: Never Assessed Comments Unknown Sex and Gender Information Value Date Recorded Sex Assigned at Not on file Legal Sex Female 10:48 AM EST Gender Identity Not on file Sexual Orientation Not on file documented as of this encounter Plan of Treatment Not on file documented as of this encounter Procedures Procedure Name Priority Date/Time Associated Diagnosis [...] acute organ dysfunction (CMS/HCC V24, CMS/HCC V28) documented in this encounter Results * (ABNORMAL) Complete blood count (02/24/2025 6:12 AM EDT) [facility] WBC 6.5 4.8 - 10.8 K/mcL LAB HEMETOLOGY METHOD 02/24/2025 12:41 PM [facility] RBC 3.30(L) 3.80 - 4.80 M/mcL LAB HEMETOLOGY METHOD 02/24/2025 12:41 PM [facility] Hemoglobin 10.3(L) 11.5 - 16.0 g/dL LAB HEMETOLOGY METHOD 02/24/2025 12:41 PM [facility] Hematocrit 32.4(L) 35.0 - 47.0 % LAB HEMETOLOGY METHOD 02/24/2025 12:41 PM [facility] MCV 97.6 79.0 - 98.0 FL LAB HEMETOLOGY METHOD 02/24/2025 12:41 PM [facility] MCH 31.0 27.0 - 32.0 pcg LAB HEMETOLOGY METHOD 02/24/2025 12:41 PM [facility] MCHC 31.8(L) 32.0 - 37.0 g/dL LAB HEMETOLOGY METHOD 02/24/2025 12:41 PM [facility] RDW 14.1 11.0 - 15.0 % LAB HEMETOLOGY METHOD 02/24/2025 12:41 PM [facility] Platelets 202 130 - 400 K/mcL LAB HEMETOLOGY METHOD 02/24/2025 12:41 PM [facility] MPV 10.7 7.0 - 11.0 FL LAB HEMETOLOGY METHOD 02/24/2025 12:41 PM [facility] NRBC 0.0 <1.0 % LAB HEMETOLOGY METHOD 02/24/2025 12:41 PM [facility] NRBC Absolute 0.00 <0.10 K/mcL LAB HEMETOLOGY METHOD 02/24/2025 12:41 PM EDT [facility] Blood Venous blood specimen / Unknown 02/24/2025 6:12 AM EDT 02/24/2025 11:54 AM EDT us Chrissy SHETTY LAB BLOOD ORDERAB LES Final Result [facility] [address] [place] [address], [place] [phone] * (ABNORMAL) Basic metabolic panel (02/24/2025 6:12 AM EDT) Sodium 138 133 - 145 mmol/L LAB CHEMISTRY METHOD 02/24/2025 12:25 PM [facility] Potassium 4.1 3.5 - 5.5 mmol/L LAB CHEMISTRY METHOD 02/24/2025 12:25 PM [facility] Chloride 105 96 - 110 mmol/L LAB CHEMISTRY METHOD 02/24/2025 12:25 PM [facility] CO2 26 21 - 32 mmol/L LAB CHEMISTRY METHOD 02/24/2025 12:25 PM [facility] Anion Gap 7 3 - 11 LAB CHEMISTRY METHOD 02/24/2025 12:25 PM [facility] Glucose 75 70 - 100 mg/dL LAB CHEMISTRY METHOD 02/24/2025 12:25 PM [facility] BUN 18 5 - 25 mg/dL LAB CHEMISTRY METHOD 02/24/2025 12:25 PM [facility] Creatinine 0.40(L) 0.50 - 1.10 mg/dL LAB CHEMISTRY METHOD 02/24/2025 12:25 PM [facility] eGFR 97 >=60 mL/min/1. 73m2 LAB CHEMISTRY METHOD 02/24/2025 12:25 PM [facility] Comment:Calculation based on the Chronic Kidney Disease Epidemiology Collaboration (CKD-EPI) equation refit without adjustment for race. BUN/Creatinine Ratio 45.0 LAB CHEMISTRY METHOD 02/24/2025 12:25 PM EDT [facility] Calcium 8.6 8.5 - 10.5 mg/dL LAB CHEMISTRY METHOD 02/24/2025 12:25 PM EDT [facility] Blood Venous blood specimen / Unknown 02/24/2025 6:12 AM EDT 02/24/2025 11:54 AM EDT us Chrissy SHETTY LAB BLOOD ORDERAB LES Final Result [facility] [address] [place] [address], documented in this encounter Visit Diagnoses Diagnosis Adult failure to thrive Hypocalcemia Systemic inflammatory response syndrome (sirs) of non-infectious origin with acute organ dysfunction (CMS/HCC V24, CMS/HCC V28) documented in this encounter Care Teams [employer]ed [employer] Boards Beveler Relationship Specialty Start Date End Date Madhav Valdovinos MD [address] [place] [address] PCP - General Family Medicine 02/16/25 documented as of this encounter
--- OUTSIDE RECORDS SUMMARY | 2025-06-25 17:16 | XMS_ITS | Encounter Summary ---
Author Organization [facility] Address [address] [place] [address] Care Team Providers Care Sand Temperer Name Role Phone Madhav Valdovinos MD Primary Care Provider Encounter Details Date Type Department Care Team (Late st Contact Info) Description 02/16/2025 Lab Requisition [facility] - Main Lab [address] [facility] [place] [address] Madhav Valdovinos MD [address] [place] [address] Other nonspecific abnormal finding of lung field; Systemic inflammatory response syndrome (sirs) of non-infectious origin with acute organ dysfunction (CMS/HCC V24, CMS/HCC V28); Unspecified convulsions (CMS/HCC V24, CMS/HCC V28) Social History Tobacco [...] Procedure Name Priority Date/Time Associated Diagnosis Comments LEVETIRACETAM LEVEL Routine 02/16/2025 6 :04 AM [...] V28) Unspecified convulsions (CMS/HCC V24, CMS/HCC V28) documented in this encounter Results * Levetiracetam level (02/16/2025 6:04 AM EDT) Levetiracetam 4.6 3.0 - 60.0 ug/mL 02/19/2025 9:19 AM EDT [facility] Comment: Steady state trough serum or plasma levels following doses of 1000 to 3000 mg/Day: 3 to 37 ug/mL. The same dosage regimen will typically result in peak levels of 10 to 60 ug/mL, at approximately 1.5 hours post dose. If applicable, any drug confirmation testing reported here was developed and the performance characteristics determined by [facility]. This confirmation testing has not been cleared or approved by the FDA. The laboratory is regulated under CLIA as qualified to perform high-complexity testing. This test is used for patient testing purposes. It should not be regarded as investigational or for research. Test performed at [facility], [address] , [place], [place] [id number] Candi Meng MD, PhD - [employer] Hearing Officer Blood Venous blood specimen / Unknown Venipuncture / Unknown 02/16/2025 6:04 AM EDT 02/16/2025 10:11 AM EDT us Madhav Valdovinos MD LAB BLOOD ORDERABLES Final R esult [facility] [address] [place] [address] * (ABNORMAL) Comprehensive metabolic panel (02/16/2025 6:04 AM EDT) Sodium 139 133 - 145 mmol/L LAB CHEMISTRY METHOD 02/16/2025 11:47 AM [facility] Potassium 4.1 3.5 - 5.5 mmol/L LAB CHEMISTRY METHOD 02/16/2025 11:47 AM [facility] Chloride 107 96 - 110 mmol/L LAB CHEMISTRY METHOD 02/16/2025 11:47 AM [facility] CO2 22 21 - 32 mmol/L LAB CHEMISTRY METHOD 02/16/2025 11:47 AM [facility] Anion Gap 10 3 - 11 LAB CHEMISTRY METHOD 02/16/2025 11:47 AM [facility] Glucose 81 70 - 100 mg/dL LAB CHEMISTRY METHOD 02/16/2025 11:47 AM [facility] BUN 15 5 - 25 mg/dL LAB CHEMISTRY METHOD 02/16/2025 11:47 AM [facility] Creatinine 0.40(L) 0.50 - 1.10 mg/dL LAB CHEMISTRY METHOD 02/16/2025 11:47 AM [facility] eGFR 97 >=60 mL/min/1. 73m2 LAB CHEMISTRY METHOD 02/16/2025 11:47 AM [facility] Comment:Calculation based on the Chronic Kidney Disease Epidemiology Collaboration (CKD-EPI) equation refit without adjustment for race. BUN/Creatinine Ratio 37.5 LAB CHEMISTRY METHOD 02/16/2025 11:47 AM [facility] Calcium 8.6 8.5 - 10.5 mg/dL LAB CHEMISTRY METHOD 02/16/2025 11:47 AM [facility] AST (SGOT) 27 10 - 42 unit/L LAB CHEMISTRY METHOD 02/16/2025 11:47 AM [facility] ALT (SGPT) 25 10 - 60 unit/L LAB CHEMISTRY METHOD 02/16/2025 11:47 AM [facility] Alkaline Phosphatase 66 42 - 121 unit/L LAB CHEMISTRY METHOD 02/16/2025 11:47 AM EDT [facility] Total Protein 6.4 6.0 - 8.0 g/dL LAB CHEMISTRY METHOD 02/16/2025 11:47 AM T [facility] Albumin 2.9(L) 3.2 - 5.0 g/dL LAB CHEMISTRY METHOD 02/16/2025 11:47 AM [facility] Total Bilirubin 0.8 0.0 - 1.4 mg/dL LAB CHEMISTRY METHOD 02/16/2025 11:47 AM EDT [facility] Blood Venous blood specimen / Unknown Venipuncture / Unknown 02/16/2025 6:04 AM EDT 02/16/2025 10:11 AM EDT us Madhav Valdovinos MD LAB BLOOD ORDERABLES Final R esult [facility] [address] [place] [address], * (ABNORMAL) Complete blood count (02/16/2025 6:04 AM EDT) WBC 7.9 4.8 - 10.8 K/mcL LAB HEMETOLOGY METHOD 02/16/2025 10:55 AM [facility] RBC 3.60(L) 3.80 - 4.80 M/mcL LAB HEMETOLOGY METHOD 02/16/2025 10:55 AM T [facility] Hemoglobin 11.3(L) 11.5 - 16.0 g/dL LAB HEMETOLOGY METHOD 02/16/2025 10:55 AM [facility] Hematocrit 34.7(L) 35.0 - 47.0 % LAB HEMETOLOGY METHOD 02/16/2025 10:55 AM [facility] MCV 95.9 79.0 - 98.0 FL LAB HEMETOLOGY METHOD 02/16/2025 10:55 AM EDT [facility] MCH 31.2 27.0 - 32.0 pcg LAB HEMETOLOGY METHOD 02/16/2025 10:55 AM EDT [facility] MCHC 32.6 32.0 - 37.0 g/dL LAB HEMETOLOGY METHOD 02/16/2025 10:55 AM [facility] RDW 13.5 11.0 - 15.0 % LAB HEMETOLOGY METHOD 02/16/2025 10:55 AM EDT [facility] Platelets 189 130 - 400 K/mcL LAB HEMETOLOGY METHOD 02/16/2025 10:55 AM T [facility] MPV 11.4(H) 7.0 - 11.0 FL LAB HEMETOLOGY METHOD 02/16/2025 10:55 AM [facility] NRBC 0.0 <1.0 % LAB HEMETOLOGY METHOD 02/16/2025 10:55 AM EDT [facility] NRBC Absolute 0.00 <0.10 K/mcL LAB HEMETOLOGY METHOD 02/16/2025 10:55 AM T [facility] Blood Venous blood specimen / Unknown Venipuncture / Unknown 02/16/2025 6:04 AM EDT 02/16/2025 10:11 AM EDT us Madhav Valdovinos MD LAB BLOOD ORDERABLES Final R esult [facility] [address] [place] [address], documented in this encounter Visit Diagnoses Diagnosis Other nonspecific abnormal finding of lung field Systemic inflammatory response syndrome (sirs) of non-infectious origin with acute organ dysfunction (CMS/HCC V24, CMS/HCC V28) Unspecified convulsions (CMS/HCC V24, CMS/HCC V28) documented in this encounter Care Teams Sand Temperer Relationship Specialty Start Date End Date Madhav Valdovinos MD [address] [place] [address] PCP - General Family Medicine 02/16/25 documented as of this encounter
== END 2025-06-25 16:41 | disposition home or self-care (01) ==
LOC: HO.HMCC 12:35
PROVIDERS: PCP Internal Medicine; Visit Provider Internal Medicine
DX: Z00.00 Encounter for general adult medical examination without abnormal findings (principal); G40.909 Epilepsy, unspecified, not intractable, without status epilepticus; R26.81 Unsteadiness on feet; R63.6 Underweight; H91.93 Unspecified hearing loss, bilateral; Z86.39 Personal history of other endocrine, nutritional and metabolic disease

== ENCOUNTER → 2025-06-25 12:35 | Outpatient (BNVA) | payer MEDICARE, SELFPAY | PROVIDERS: PCP Internal Medicine; Visit Provider Internal Medicine | DX: Z00.01 Encounter for general adult medical examination with abnormal findings (principal); R26.81 Unsteadiness on feet; R63.6 Underweight; H91.93 Unspecified hearing loss, bilateral; G40.909 Epilepsy, unspecified, not intractable, without status epilepticus; Z86.39 Personal history of other endocrine, nutritional and metabolic disease | CPT/HCPCS: 99397 ==